=== PATIENT | male | born 1995 | race Caucasian/White ===

== ENCOUNTER 2017-03-05 22:25 | Emergency (ER) | payer MEDICAID ==
[2017-03-05 22:37] VITALS: BP 124/85; PULSE 78; RESP 18; TEMP 97.7; O2SAT 96
--- NOTE | 2017-03-05 22:45 | CPEKG ---
Heart Rate: 67 RR Interval: 896 P-R Interval: 168 QRSD Interval: 94 QT Interval: 376 QTC Interval: 397 P [place]: 45 QRS [place]: 83 T Wave [place]: 38 EKG Severity - NORMAL ECG - EKG Impression: SINUS RHYTHM Electronically Signed By: Zac Fregoso 06-Mar-2017 05:36:58
--- NOTE | 2017-03-05 22:49 | EDPHY ---
H & P Stated Complaint: chest tightness and l arm pain during final Time Seen by Provider: 03/05/17 22:37 HPI/ROS: Chief Complaint: Chest pain HPI: 21-year-old male started developing substernal chest pain and pain in his left hand while taking final exam this evening. Started about 1 hour ago. Described as a tightness. No shortness of breath. At worst was a 6/10. Now it is 0/10. No recent illness. No cough. There are no aggravating or alleviating factors. He did not feel particularly anxious. No cough. No leg pain or swelling. No risk factors for coronary artery disease or DVT or PE. No recent periods of immobility. No leg pain or swelling. ROS: 10 point Review of Systems is negative except as noted in the HPI. PMH: None Medications: None Allergies: No known drug allergies Social History: No smoking, occasional alcohol, no recreational drug use Family History: Mom had breast cancer, father has a history of alcoholism, no family history of coronary artery disease or sudden cardiac Physical Exam: Gen: Awake, Alert, No Distress HEENT: Nose: no rhinorrhea Eyes: PERRLA, EOMI Mouth: Moist mucosa Neck: Supple, no JVD Chest: Mild left parasternal tenderness to palpation reproducing his presenting complaint, lungs clear to auscultation Heart: S1, S2 normal, no murmur Abd: Soft, non-tender, no guarding Back: no CVA tenderness, no midline tenderness Ext: no edema, non-tender Skin: no rash Neuro: CN II-XII intact, Sensation grossly intact, Strength 5/5 in bilateral upper and lower extremities - Personal History Current Tetanus/Diphtheria Vaccine: Yes Current Tetanus Diphtheria and Acellular Pertussis (TDAP): Yes - Medical/Surgical History Hx Asthma: Yes Hx Chronic Respiratory Disease: No Hx Diabetes: No Hx Cardiac Disease: No Hx Renal Disease: No Hx Cirrhosis: No Hx Alcoholism: No Hx HIV/AIDS: No Hx Splenectomy or Spleen Trauma: No Other PMH: appy - Social History Smoking Status: Never smoked Constitutional: Initial Vital Signs Temperature (C) 36.5 C 03/05/17 22:31 Heart Rate 78 03/05/17 22:31 Respiratory Rate 18 03/05/17 22:31 Blood Pressure 124/85 H 03/05/17 22:31 O2 Sat (%) 96 03/05/17 22:31 O2 Delivery Mode Room Air Allergies/Adverse Reactions: No Known Allergies Allergy (Unverified 03/05/17 22:31) Home Medications: Medication Instructions Recorded NK [No Known Home Meds] 03/05/17 Medical Decision Making - Diagnostics EKG Interpretation: ECG time 10:41 p.m.: Sinus rhythm with rate is 67, normal axis, normal intervals, no acute ST or T-wave changes. Impression: Normal ECG. ED Course/Re-evaluation: 21-year-old male with no risk factors for coronary disease has some chest tightness while taking final exam this evening it is completely gone away. ECG is entirely normal. He has reproducible chest wall tenderness on exam. This patient has no risk for acute coronary syndrome. Is very well-appearing. Will discharge with follow-up as an outpatient, return for worsening. Departure - Departure Disposition: Home, Routine, Self-Care Clinical Impression: Atypical chest pain Condition: Good Instructions: Chest Wall Pain (ED) Additional Instructions: You may take ibuprofen or acetaminophen as needed for any aches or pains. Return to the emergency depart for increasing chest pain, shortness of breath, fevers, chills, sweating, or any other concerns. Follow up with primary care physician in 3-4 days for any concerns. Referrals: Onofre Ashford MD [Medical Doctor] - As per Instructions
== END 2017-03-05 23:00 | disposition home or self-care (01) ==
DX: R07.89 Other chest pain (principal); J45.909 Unspecified asthma, uncomplicated